=== PATIENT | male | born 1995 | race African-American/Black ===

== ENCOUNTER 2019-05-15 14:47 | Emergency (ER) | payer OTHER ==
[~2019-05-15] VITALS: Ht 180.3 cm; Wt 85.1 kg
--- NOTE | 2019-05-15 15:37 | REP ---
Four views right wrist: 05/15/2019. Indication: Pain following injury. Comparison: None. Findings: There is no acute fracture, subluxation or dislocation. No erosive lesions of the visualized bones are present. Impression: No fracture. No acute osseous pathology. Electronically Signed by Hardik Nice DO 05/15/2019 03:29 P
[2019-05-15 16:05] VITALS: BP 135/72
== END 2019-05-15 16:06 | disposition home or self-care (01) ==
LOC: M ED 14:47
DX: M67.833 Other specified disorders of tendon, right wrist (principal); M25.531 Pain in right wrist; M79.631 Pain in right forearm

== ENCOUNTER 2020-02-02 18:14 | Emergency (ER) | payer OTHER | END 2020-02-02 21:43 | disposition home or self-care (01) | LOC: M ED 18:14 | DX: Z11.59 Encounter for screening for other viral diseases (principal); J06.9 Acute upper respiratory infection, unspecified; Z20.828 Contact with and (suspected) exposure to other viral communicable diseases | CPT/HCPCS: 87081; 99283; U0002 ==